=== PATIENT | female | born 1945 | race Caucasian/White ===

== ENCOUNTER 2017-08-18 17:01 | Emergency (ER) | payer OTHER ==
[~2017-08-18] VITALS: Ht 165.1 cm; Wt 95.0 kg
[~2017-08-18 17:01] MED LIST: ASPI81 PO; CARV3.12 PO; COQ-100C2 PO; CULT10CA2 PO; ESCI10TA PO; FISH120014 PO; LEVO100T60 PO; LOSA25 PO; MACR100C PO; PYRI200T4 PO; SYMB160A INH; TAB-TAB PO; VITA5000 PO; VITA500S3 PO
[2017-08-18 17:07] VITALS: BP 229/102; PULSE 69; RESP 16; TEMP 98; O2SAT 94
[2017-08-18 17:40] VITALS: BP 200/77; PULSE 70; RESP 18; O2SAT 91
[2017-08-18] MEDS ORDERED: LACT1CAP30 PO (17:40)
[2017-08-18] MEDS ORDERED: COQ-100C5 PO (17:40)
[2017-08-18] MEDS ORDERED: LEVO125T4 PO (17:40)
[2017-08-18] MEDS ORDERED: CARV3.12 PO (17:40)
[2017-08-18] MEDS ORDERED: LOSA25TA PO (17:40)
[2017-08-18] MEDS ORDERED: CHOL5000 PO (17:40)
[2017-08-18] MEDS ORDERED: OMEGCAP PO (17:40)
[2017-08-18] MEDS ORDERED: ESCI10TA PO (17:40)
[2017-08-18] MEDS ORDERED: ASPI81CH CHEW (17:40)
[2017-08-18] MEDS ORDERED: VITA10002 PO (17:40)
[2017-08-18] MEDS ORDERED: MULTTAB67 PO (17:40)
--- NOTE | 2017-08-18 17:43 | PD ---
HPI Chief Complaint: Dizziness Time Seen by Provider: 17:19 (Rabia Diego MD) Travel History International Travel<30 days: No Contact w/Intl Traveler<30days: No Traveled to known affect area: No (Rabia Diego MD) History of Present Illness HPI 71 y/o female presents with 4 day history of dizziness. She states it'll feel like she is spinning some. She denies prior history of this or vertigo. She denies any pain or associated symptoms. She denies any dizziness currently. She states when she stands she's noticed sometimes that makes the dizziness happened. She denies other modifying factors. (Rabia Diego MD) PFSH Past Medical History Hx Anticoagulant Therapy: Yes (asa) Cancer: No Cardiovascular Problems: Yes (MT) Chest Pain: Yes Diabetes: No Diminished Hearing: No Gastrointestinal Disorders: No Glaucoma: No Hepatitis: No Hiatal Hernia: No Hypertension: Yes Respiratory: Yes (COPD) Integumentary: No Immunizations Current: Yes Myocardial Infarction: Yes Thyroid Disease: Yes (HYPO) Tetanus Vaccination: < 5 Years Influenza Vaccination: Yes Menopausal: Yes (Rabia Diego MD) Past Surgical History Cholecystectomy: Yes Hysterectomy: Yes Thoracic Surgery: No Other Surgery: Yes (HYSTERECTOMY, CHOLECYSTECTOMY) (Rabia Diego MD) Social History Alcohol Use: Yes (OCASIONAL) Tobacco Use: No Substance Use: No (Rabia Diego MD) Allergies-Medications (Allergen,Severity, Reaction): Coded Allergies: No Known Allergies (Unverified , 01/14/16) Reported Meds & Prescriptions Reported Meds & Active Scripts Active Reported Carvedilol 3.125 Mg Tab 3.125 Mg PO BID Escitalopram (Escitalopram Oxalate) 10 Mg Tab 10 Mg PO DAILY Losartan (Losartan Potassium) 25 Mg Tab 25 Mg PO DAILY Levothyroxine (Levothyroxine Sodium) 125 Mcg Tab 125 Mcg PO DAILY Aspirin 81 Mg Chew 81 Mg CHEW DAILY Vitamin B-12 (Cyanocobalamin) 1,000 Mcg Tab 1,000 Mcg PO DAILY Vitamin D3 (Cholecalciferol) 5,000 Unit Cap 5,000 Units PO DAILY Acidophilus Lactobacilli (Lactobacillus Acidophilus) 500 Million Cell Capsule 2 Tab PO DAILY Coq-10 Tr (Coenzyme Q10 (Ubidecarenone)) 100 Mg Cap 1 Cap PO DAILY [place]-3 Fish Oil/Vitamin (Fish Oil-Cholecalciferol) 1,000-1,000 Mg Cap 1 Cap PO DAILY Multiple Vitamin 1 Tab 1 Tab PO DAILY (Essie Driver MD) Review of Systems Except as stated in HPI: all other systems reviewed are Neg (Rabia Diego MD) Physical Exam Narrative GENERAL: Well-nourished, well-developed patient. SKIN: Warm and dry. HEAD: Normocephalic and atraumatic. EYES: No injection or drainage. ENT: No nasal drainage noted. NECK: Supple, trachea midline. CARDIOVASCULAR: Regular rate and rhythm RESPIRATORY: Breath sounds equal bilaterally. No accessory muscle use. GASTROINTESTINAL: Abdomen soft, non-tender, nondistended. EXTREMITIES: No edema. BACK: Nontender without obvious deformity. NEUROLOGICAL: Awake and alert. Motor and sensory grossly within normal limits. Normal speech. 5 out of 5 in all 4 extremities, equal grasp bilaterally, rapid alternating intact (Rabia Diego MD) Data Data Last Documented VS Vital Signs Date Time Temp Pulse Resp B/P (MAP) Pulse Ox O2 Delivery O2 Flow Rate FiO2 08/18/17 19:00 68 18 181/86 (117) 93 Room Air 08/18/17 17:07 98.0 (Essie Driver MD) Orders Orders Magnesium (Mg) (08/18/17 17:25) Phosphorus (Po4) (08/18/17 17:25) Complete Blood Count With Diff (08/18/17 17:25) Comprehensive Metabolic Panel (08/18/17 17:25) Urinalysis - C+S If Indicated (08/18/17 17:25) Act Partial Throm Time (Ptt) (08/18/17 17:25) Prothrombin Time / Inr (Pt) (08/18/17 17:25) Ct Brain W/O Iv Contrast(Rout) (08/18/17 ) Electrocardiogram (08/18/17 ) Iv Access Insert/Monitor (08/18/17 17:25) Ecg Monitoring (08/18/17 17:25) Oximetry (08/18/17 17:25) Chest, Single Ap (08/18/17 ) (Essie Driver MD) Labs Laboratory Tests Test 08/18/17 17:40 08/18/17 17:45 Urine Color YELLOW Urine Turbidity CLEAR Urine pH 5.5 Urine Specific [place] 1.027 Urine Protein NEG mg/dL Urine Glucose (UA) NEG mg/dL Urine Ketones NEG mg/dL Urine Occult Blood NEG Urine Nitrite NEG Urine Bilirubin NEG Urine Leukocyte Esterase TRACE Urine RBC 0-3 /hpf Urine WBC 6-8 /hpf Urine Squamous Epithelial Cells 6-8 /hpf Urine Calcium Oxalate Crystals FEW /hpf Urine Bacteria RARE /hpf Microscopic Urinalysis Comment CULT NOT INDICATED White Blood Count 7.4 TH/MM3 Red Blood Count 4.53 MIL/MM3 Hemoglobin 13.7 GM/DL Hematocrit 40.9 % Mean Corpuscular Volume 90.1 FL Mean Corpuscular Hemoglobin 30.1 PG Mean Corpuscular Hemoglobin Concent 33.5 % Red Cell Distribution Width 12.8 % Platelet Count 293 TH/MM3 Mean Platelet Volume 7.0 FL Neutrophils (%) (Auto) 57.7 % Lymphocytes (%) (Auto) 30.1 % Monocytes (%) (Auto) 8.1 % Eosinophils (%) (Auto) 3.4 % Basophils (%) (Auto) 0.7 % Neutrophils # (Auto) 4.2 TH/MM3 Lymphocytes # (Auto) 2.2 TH/MM3 Monocytes # (Auto) 0.6 TH/MM3 Eosinophils # (Auto) 0.3 TH/MM3 Basophils # (Auto) 0.1 TH/MM3 CBC Comment DIFF FINAL Differential Comment Prothrombin Time 10.6 SEC Prothromb Time International Ratio 1.0 RATIO Activated Partial Thromboplast Time 25.0 SEC Blood Urea Nitrogen 18 MG/DL Creatinine 0.87 MG/DL Random Glucose 88 MG/DL Total Protein 7.8 GM/DL Albumin 3.7 GM/DL Calcium Level 9.3 MG/DL Phosphorus Level 3.1 MG/DL Magnesium Level 2.3 MG/DL Alkaline Phosphatase 60 U/L Aspartate Amino Transf (AST/SGOT) 33 U/L Alanine Aminotransferase (ALT/SGPT) 37 U/L Total Bilirubin 0.4 MG/DL Sodium Level 137 MEQ/L Potassium Level 4.1 MEQ/L Chloride Level 103 MEQ/L Carbon Dioxide Level 26.3 MEQ/L Anion Gap 8 MEQ/L Estimat Glomerular Filtration Rate 65 ML/MIN (Essie Driver MD) [facility] Medical Decision Making Medical Screen Exam Complete: Yes Emergency Medical Condition: Yes Medical Record Reviewed: Yes (past history confirmed) Interpretation(s) EKG shows NSR, no ST elevation or depression, and no arrhythmias. No significant T-wave inversions. CBC & BMP Diagram 08/18/17 17:45 Total Protein 7.8, Albumin 3.7, Calcium Level 9.3, Phosphorus Level 3.1, Magnesium Level 2.3, Alkaline Phosphatase 60, Aspartate Amino Transf (AST/SGOT) 33, Alanine Aminotransferase (ALT/SGPT) 37, Total Bilirubin 0.4 ct head no acute Differential Diagnosis Anemia, dehydration, UTI, intracranial, vertigo Narrative Course Will check labs, urinalysis, CT brain and monitor cxr pending at time of my departure, signed over to dr driver for reevaluation (Rabia Diego MD) Diagnosis Primary Impression: Dizziness Scripts Amoxicillin-Clavulanate (Augmentin) 875-125 Mg Tab 1 TAB PO BID for Infection, #10 TAB 0 Refills Prov: Essie Driver MD 08/18/17 Rabia Diego MD Aug 18, 2017 17:43 Essie Driver MD Aug 18, 2017 19:59
[2017-08-18 17:50] VITALS: O2SAT 92
[2017-08-18 18:06] VITALS: BP 167/74; PULSE 74; RESP 20; O2SAT 93
[2017-08-18 18:06] LABS: BLOOD, URINE NEG (NEG); GLUCOSE,URINE NEG (NEG); KETONE, URINE NEG (NEG); NITRITE,URINE NEG (NEG); PH, URINE 5.5 (5.0-8.5)
[2017-08-18 18:14] LABS: CHLORIDE 103 MEQ/L (98-107); POTASSIUM 4.1 MEQ/L (3.5-5.1); SODIUM (NA) 137 MEQ/L (136-145)
[2017-08-18 18:15] LABS: URINE COLOR YELLOW (YELLW/STRAW)
[2017-08-18 18:16] LABS: BACTERIA, URINE RARE /hpf; CALCIUM OXALATE CRYSTALS,URINE FEW /hpf; COMMENT (UR) CULT NOT INDICATED; CULTURE IF INDICATED CULT NOT INDICATED; RBC, URINE 0-3 /hpf (0-3)
[2017-08-18 18:17] LABS: AUTOMATED NEUTROPHIL # 4.2 TH/MM3 (1.8-7.7); BASOPHIL # 0.1 TH/MM3 (0-0.2); BASOPHIL % 0.7 % (0.0-2.0); EOSINOPHIL # 0.3 TH/MM3 (0-0.4); EOSINOPHIL % 3.4 % (0.0-4.0); HEMATOCRIT 40.9 % (35.0-46.0); HEMO FLAGS DIFF FINAL; LYMPH % 30.1 % (9.0-44.0); LYMPHOCYTE # 2.2 TH/MM3 (1.0-4.8); MEAN CELL VOLUME 90.1 FL (80.0-100.0); MEAN CORPUSCULAR HEMOGLOBIN 30.1 PG (27.0-34.0); MEAN CORPUSCULAR HGB CONC 33.5 % (32.0-36.0); MONO % 8.1 % (0.0-8.0); NEUT % 57.7 % (16.0-70.0); PLATELET COUNT 293 TH/MM3 (150-450); RED BLOOD COUNT 4.53 MIL/MM3 (4.00-5.30); RED CELL DISTRIBUTION WIDTH 12.8 % (11.6-17.2); WHITE BLOOD COUNT 7.4 TH/MM3 (4.0-11.0)
[2017-08-18 18:18] LABS: ANION GAP 8 MEQ/L (5-15); BICARBONATE 26.3 MEQ/L (21.0-32.0); BLOOD UREA NITROGEN 18 MG/DL (7-18); MAGNESIUM 2.3 MG/DL (1.5-2.5)
--- NOTE | 2017-08-18 18:19 | RADRPT ---
EXAM DATE/TIME: 08/18/2017 18:09 [facility] COMPARISON: No previous studies available for comparison. INDICATIONS : Dizzy RADIATION DOSE: 60.06 CTDIvol (mGy) MEDICAL HISTORY : Hyperparathyroidism. Cardiovascular disease Chronic obstructive pulmonary disease.CT SURGICAL HISTORY : Hysterectomy. Cholecystectomy. ENCOUNTER: Initial ACUITY: 4 - 6 days PAIN SCALE: 0/10 LOCATION: cranial TECHNIQUE: Multiple contiguous axial images were obtained of the head. Using automated exposure control and adj ustment of the mA and/or kV according to patient size, radiation dose was kept as low as reasonably a chievable to obtain optimal diagnostic quality images. DICOM format image data is available electro nically for review and comparison. FINDINGS: CEREBRUM: Mild cerebral atrophy. The ventricles are normal for age. No evidence of midline shift, mass lesion, hemorrhage or acute infarction. No extra-axial fluid collections are seen. POSTERIOR FOSSA: The cerebellum and brainstem are intact. The 4th ventricle is midline. The cerebellopontine angle i s unremarkable. EXTRACRANIAL: The visualized portion of the orbits is intact. SKULL: The calvaria is intact. No evidence of skull fracture. CONCLUSION: 1. No acute intracranial adenopathy. Paul Moyer MD on August 18, 2017 at 18:16 Board Certified Radiologist. This report was verified electronically.
[2017-08-18 18:20] LABS: PROTHROMBIN TIME - PATIENT 10.6 SEC (9.8-11.6)
[2017-08-18 18:21] LABS: ALT (GPT) 37 U/L (10-53); AST (GOT) 33 U/L (15-37); GLOMERULAR FILTRATION RATE 65 ML/MIN (>89)
[2017-08-18 18:22] LABS: TOTAL BILIRUBIN ADULT 0.4 MG/DL (0.2-1.0)
[2017-08-18 18:24] LABS: ALKALINE PHOSPHATASE 60 U/L (45-117)
[2017-08-18 19:00] VITALS: BP 181/86; PULSE 68; RESP 18; O2SAT 93
--- NOTE | 2017-08-18 19:04 | RADRPT ---
EXAM DATE/TIME: 08/18/2017 18:50 [facility] COMPARISON: No previous studies available for comparison. INDICATIONS : Dizziness. MEDICAL HISTORY : Chronic obstructive pulmonary disease. Hypertension SURGICAL HISTORY : None. ENCOUNTER: Initial ACUITY: 4 - 6 days PAIN SCORE: 0/10 LOCATION: Bilateral chest FINDINGS: There is some mild interstitial prominence in the upper lateral left lung without focal consolidation . The right lung is clear. The heart is upper limits normal size for AP technique. Both hemidiaphr agms are well delineated. CONCLUSION: Mild interstitial infiltrate upper lateral left lung. Justin Montana MD on August 18, 2017 at 19:01 Board Certified Radiologist. This report was verified electronically.
[2017-08-18 20:40] LABS: CREATINE KINASE 70 U/L (26-192)
--- NOTE | 2017-08-18 20:48 | PD ---
Physical Exam Date Seen by Provider: Aug 18, 2017 Time Seen by Provider: 20:00 Narrative GENERAL: Well-developed well-nourished female in no acute distress no respiratory distress SKIN: Warm and dry. HEAD: Normocephalic. EYES: No scleral icterus. No injection or drainage. NECK: Supple, trachea midline. No JVD or lymphadenopathy. CARDIOVASCULAR: Regular rate and rhythm without murmurs, gallops, or rubs. RESPIRATORY: Breath sounds equal bilaterally. No accessory muscle use. GASTROINTESTINAL: Abdomen soft, non-tender, nondistended. MUSCULOSKELETAL: No cyanosis, or edema. BACK: Nontender without obvious deformity. No CVA tenderness. Data Data Last Documented VS Vital Signs Date Time Temp Pulse Resp B/P (MAP) Pulse Ox O2 Delivery O2 Flow Rate FiO2 08/18/17 19:00 68 18 181/86 (117) 93 Room Air 08/18/17 17:07 98.0 Orders Orders Magnesium (Mg) (08/18/17 17:25) Phosphorus (Po4) (08/18/17 17:25) Complete Blood Count With Diff (08/18/17 17:25) Comprehensive Metabolic Panel (08/18/17 17:25) Urinalysis - C+S If Indicated (08/18/17 17:25) Act Partial Throm Time (Ptt) (08/18/17 17:25) Prothrombin Time / Inr (Pt) (08/18/17 17:25) Ct Brain W/O Iv Contrast(Rout) (08/18/17 ) Electrocardiogram (08/18/17 ) Iv Access Insert/Monitor (08/18/17 17:25) Ecg Monitoring (08/18/17 17:25) Oximetry (08/18/17 17:25) Chest, Single Ap (08/18/17 ) B-Type Natriuretic Peptide (08/18/17 20:06) Ckmb (Isoenzyme) Profile (08/18/17 17:45) Troponin I (08/18/17 17:45) Labs Laboratory Tests Test 08/18/17 17:40 08/18/17 17:45 Urine Color YELLOW Urine Turbidity CLEAR Urine pH 5.5 Urine Specific [place] 1.027 Urine Protein NEG mg/dL Urine Glucose (UA) NEG mg/dL Urine Ketones NEG mg/dL Urine Occult Blood NEG Urine Nitrite NEG Urine Bilirubin NEG Urine Leukocyte Esterase TRACE Urine RBC 0-3 /hpf Urine WBC 6-8 /hpf Urine Squamous Epithelial Cells 6-8 /hpf Urine Calcium Oxalate Crystals FEW /hpf Urine Bacteria RARE /hpf Microscopic Urinalysis Comment CULT NOT INDICATED White Blood Count 7.4 TH/MM3 Red Blood Count 4.53 MIL/MM3 Hemoglobin 13.7 GM/DL Hematocrit 40.9 % Mean Corpuscular Volume 90.1 FL Mean Corpuscular Hemoglobin 30.1 PG Mean Corpuscular Hemoglobin Concent 33.5 % Red Cell Distribution Width 12.8 % Platelet Count 293 TH/MM3 Mean Platelet Volume 7.0 FL Neutrophils (%) (Auto) 57.7 % Lymphocytes (%) (Auto) 30.1 % Monocytes (%) (Auto) 8.1 % Eosinophils (%) (Auto) 3.4 % Basophils (%) (Auto) 0.7 % Neutrophils # (Auto) 4.2 TH/MM3 Lymphocytes # (Auto) 2.2 TH/MM3 Monocytes # (Auto) 0.6 TH/MM3 Eosinophils # (Auto) 0.3 TH/MM3 Basophils # (Auto) 0.1 TH/MM3 CBC Comment DIFF FINAL Differential Comment Prothrombin Time 10.6 SEC Prothromb Time International Ratio 1.0 RATIO Activated Partial Thromboplast Time 25.0 SEC Blood Urea Nitrogen 18 MG/DL Creatinine 0.87 MG/DL Random Glucose 88 MG/DL Total Protein 7.8 GM/DL Albumin 3.7 GM/DL Calcium Level 9.3 MG/DL Phosphorus Level 3.1 MG/DL Magnesium Level 2.3 MG/DL Alkaline Phosphatase 60 U/L Aspartate Amino Transf (AST/SGOT) 33 U/L Alanine Aminotransferase (ALT/SGPT) 37 U/L Total Bilirubin 0.4 MG/DL Sodium Level 137 MEQ/L Potassium Level 4.1 MEQ/L Chloride Level 103 MEQ/L Carbon Dioxide Level 26.3 MEQ/L Anion Gap 8 MEQ/L Estimat Glomerular Filtration Rate 65 ML/MIN Total Creatine Kinase 70 U/L Troponin I LESS THAN 0.02 NG/ML B-Type Natriuretic Peptide 23 PG/ML [facility] Medical Record Reviewed: Yes Supervised Visit with IRLANDA: No Interpretation(s) CT brain w/o per reading radiologist: nad Vital Signs Date Time Temp Pulse Resp B/P (MAP) Pulse Ox O2 Delivery O2 Flow Rate FiO2 08/18/17 19:00 68 18 181/86 (117) 93 Room Air 08/18/17 18:06 74 20 167/74 (105) 93 Room Air 08/18/17 17:50 92 Room Air 08/18/17 17:40 70 18 200/77 (118) 91 Room Air 08/18/17 17:28 Room Air 08/18/17 17:07 98.0 69 16 229/102 (144) 94 Room Air CK: 70, not elevated troponin I: less than 0.02, not elevated BNP: 23, not elevated CXR: FINDINGS: There is some mild interstitial prominence in the upper lateral left lung without focal consolidation. The right lung is clear. The heart is upper limits normal size for AP technique. Both hemidiaphragms are well delineated. CONCLUSION: Mild interstitial infiltrate upper lateral left lung. Justin Montana MD on August 18, 2017 at 19:01 Board Certified Radiologist. This report was verified electronically. Differential Diagnosis please refer to Dr Diego's dictation Narrative Course accepted in transfer of care from Dr Diego for follow up CXR reading -- identified to have small area of left apical interstitial infiltrate; discussed this with patient his states for the past 4 days she's had subjective fever with cough and congestion no orthopnea and no PND no peripheral edema no lower leg pain or pleuritic chest pain. Patient denies history of CHF. Patient does occasionally use a rescue inhaler and thought she might be developing bronchitis. Patient states she iced it on 2 pillows and has been sleeping for the past 4 nights on her 2 pillows as normal without orthopnea or PND. Patient had EKG with previously showed no acute injury pattern will add CK troponin I and BNP; patient had CT brain noncontrast for presenting complaint of dizziness which revealed no acute process and other lab values were grossly within normal range. It is now 8:50 PM troponin I CK and BMP values in normal range in view of patient's complaint of subjective fever cough congestion and use of inhaler for bronchitis will provide patient with prescription for Augmentin patient has been noted to have elevated blood pressure as well as encouraged to take her blood pressure medication as prescribed including her evening dose of BP medication. Diagnosis Primary Impression: Dizziness Additional Impression: Bronchitis Referrals: Primary Care Physician call for appointment Patient Instructions: General Instructions Additional Instruction: return as needed, follow with primary sunday Take antibiotic as prescribed Use acetaminophen/Tylenol as often as every 4-6 hours for fever 100.4F or greater Increase fluid hydration Return to the emergency department for any concerns or change in condition Med/Other Pt SpecificInfo: Prescription(s) given Scripts Amoxicillin-Clavulanate (Augmentin) 875-125 Mg Tab 1 TAB PO BID for Infection, #10 TAB 0 Refills Prov: Essie Martinez MD 08/18/17 Disposition: 01 DISCHARGE HOME Condition: Stable Essie Martinez MD Aug 18, 2017 20:48
[2017-08-18] MEDS ORDERED: AUGM875T3 PO (20:55)
[2017-08-18 21:01] VITALS: BP 180/84; PULSE 74; RESP 18; O2SAT 93
--- NOTE | 2017-08-19 01:16 | EKG ---
Date Performed: 08/18/2017 Time Performed: 17:35:45 PTAGE: 71 years EKG: Sinus rhythm NORMAL ECG PREVIOUS TRACING : 11/29/2012 11.40 No significant change from previous tracing noted. DOCTOR: Kamran Pinedo Interpretating Date/Time 08/19/2017 01:14:37
== END 2017-08-18 21:12 | disposition home or self-care (01) ==
LOC: PHED 17:01
DX: R42 Dizziness and giddiness (principal); J40 Bronchitis, not specified as acute or chronic; R91.8 Other nonspecific abnormal finding of lung field; I10 Essential (primary) hypertension; E07.9 Disorder of thyroid, unspecified; I25.2 Old myocardial infarction; Z79.82 Long term (current) use of aspirin; Z79.899 Other long term (current) drug therapy; Z86.79 Personal history of other diseases of the circulatory system; Z87.09 Personal history of other diseases of the respiratory system
CPT/HCPCS: 70450; 71010; 80053; 81001; 82550; 83735; 83880; 84100; 84484; 85025; 85610; 85730; 93005; 99285